=== PATIENT | female | born 2000 | race Caucasian/White ===

== ENCOUNTER 2023-08-02 07:56 | Outpatient (CLI) | payer OTHER ==
--- NOTE | 2023-08-02 11:35 | XRAY Report ---
PROCEDURE: Spine Scoliosis Study 2-3V INDICATIONS: IDIOPATHIC SCOLIOSIS TECHNIQUE: Frontal and lateral standing views of the spine acquired. COMPARISON: None. FINDINGS: Less than 5 degrees curvature of the thoracal lumbar spine. At L3-4, there is approximately 2 mm retr olisthesis. Bone morphology: No developmental anomalies of the ribs or spine. 12 pairs of ribs are noted. 5 no nrib-bearing lumbar vertebrae are present. No suspicious bony lesions. IMPRESSION: 1.No significant scoliosis. 2.Grade 1 retrolisthesis at L3-4 measuring 2 mm. Reviewed by: Maged Krishna MD on 08/02/2023 11:34 AM PDT Approved by: Maged Krishna MD on 08/02/2023 11:34 AM PDT Station ID: [id number]
== END 2023-08-02 07:57 | disposition home or self-care (01) ==
LOC: DI.N 07:56
PROVIDERS: ATTEND Internal Medicine
DX: M43.16 Spondylolisthesis, lumbar region (principal)

== ENCOUNTER 2023-08-08 19:32 | Outpatient (CLI) | payer OTHER | END 2023-08-08 19:33 | disposition home or self-care (01) | LOC: SC 19:32 | PROVIDERS: ATTEND Internal Medicine Pulmonary Disease | DX: G47.8 Other sleep disorders (principal); R53.83 Other fatigue; R51.9 Headache, unspecified; E66.3 Overweight | CPT/HCPCS: 95810 ==

== ENCOUNTER 2023-08-30 08:38 | Outpatient (CLI) | payer OTHER ==
--- NOTE | 2023-08-30 09:05 | Sleep Patient Instructions ---
Sleep Center Visit Summary - Patient Visit Information Reason for Visit: Sleep study follow-up - Patient Instructions Instructions Attached: Insomnia Tx, Insomnia Additional Instructions: [You have returned to the office for results of your sleep study which showed no sleep disordered breathing. You appear to have insomnia which can improve with improving sleep hygiene. Please call office to schedule a follow up appointment in the sleep care office as needed. - Clinic Information Contact: [facility] [address] [place] [id number] [email or web address] T: [phone]
--- NOTE | 2023-08-30 09:10 | SLEEP CARE CONSULTATION ---
Information from patient questionnaire entered by Luda Cat. I have reviewed and concur with the information entered by Luda Cat. This document represents the service I personally performed and the decisions made by , Yulisa Brown ARNP. History of Present Illness Service Date and Time: 08/30/2023 0838 Initial Fenwick Sleepiness Scale score: 3 (07/01/23) Current Fenwick Sleepiness Scale score: 4 (08/30/23) Additional HPI information: JUAN CARLOS DICK returns for follow up and results of the recently performed polysomnography. The patient was informed of the following findings: No significant sleep disordered breathing with an average AHI of 0 and carolin oxygen saturation of 93%. I explained the pathophysiology behind obstructive sleep apnea. Patient does not have sleep apnea and was advised how weight gain could increase the risk of developing sleep apnea in the future. Patient was cautioned about risks of drowsy driving until sleepiness symptoms resolve. Patient denies drowsy driving. Sleep Study - Results Type of Sleep Study: Polysomnography (COMPLETED 08/08/2023) Prior sleep studies: No Polysomnography/Home Sleep Study results: IMPRESSION: The quality of the study is good. The patient had normal sleep efficiency. The sleep architecture was relatively normal as well considering the first night effect. Respiratory monitoring showed no significant sleep disordered breathing (AHI = 0.0) or hypoxia (carolin oxygen saturation of 93%). The patient slept adequately in supine position (supine AHI = 0.0; non-supine = 0.00). No audible snore. There was no significant periodic leg movement of sleep. Cardiac rhythm was normal sinus rhythm without significant arrhythmia. No abnormal behavior (parasomnia) observed during the night. Allergies and Home Medications Known drug allergies: No Drug allergies reviewed: Yes Home medication list reviewed: Yes (NO CHANGES) Review of Systems Review of systems same as previous: Yes (NO CHANGE) Physical Exam Vital signs obtained and entered by: LUDA Granados MA Blood Pressure: 127/88 (RIGHT ARM) Cuff size: regular Heart Rate: 103 O2 Saturation: 100 Height: 5 ft 5 in Weight: 151 lb Body Mass Index: 25.1 BMI Classification: Overweight Impression and Plan 1. Insomnia, sleep onset and sleep maintenance. She says she did move her bedtime back to 10 PM but it did not seem to make a difference in being able to get to sleep sooner. She is still waking up tired. Insomnia is generally caused by an irregular sleep schedule, spending too much time in bed, napping, caffeine, electronics, lack of a relaxing bedtime ritual and clock watching. Other factors can include anxiety/depression, pain, medications, and obstructive sleep apnea. She is going to followup with her PCP as they are exploring pain issues which may be causing her disrupted and unrefreshed sleep. She will follow up with sleep care as needed. * Follow up with PCP as described * Return as needed for follow up. Follow up with Sleep Care in: as needed Visit Type: In Office Time Spent with Patient (minutes): 12 Provider Statement: I spent 100% of the Face to Face Visit with the patient with greater than 50% spent counseling the patient and coordination of care.
[2023-08-30 09:21] VITALS: BP 127/88; O2SAT 100
== END 2023-08-30 08:39 | disposition home or self-care (01) ==
LOC: SC 08:38
PROVIDERS: ATTEND Nurse Practitioner Family
DX: G47.00 Insomnia, unspecified (principal); E66.3 Overweight; Z68.25 Body mass index [BMI] 25.0-25.9, adult
CPT/HCPCS: 99212